=== PATIENT | male | born 1955 | race Hispanic/Latino ===

== ENCOUNTER 2020-08-14 09:00 | Inpatient (IN) | payer OTHER ==
[~2020-08-14] VITALS: Ht 180.3 cm; Wt 131.0 kg
[2020-08-15 11:24] LABS: BASOPHILS % (AUTO) 1.2 % (0.0-5.0); EOSINOPHILS % (AUTO) 4.5 % (0.0-8.0); HEMATOCRIT 44.7 % (42-54); MEAN CORPUSCULAR HEMOGLOBIN 32.2 pg (27.0-33.0); MEAN CORPUSCULAR HGB CONC 35.1 g/dL (32.0-36.0); MEAN CORPUSCULAR VOLUME 91.8 fL (79-99); MONOCYTES % (AUTO) 6.4 % (3.0-13.0); NEUTROPHILS % (AUTO) 59.4 % (40.0-77.0); PLATELET COUNT (AUTO) 347 K/uL (130-400); RED BLOOD CELL COUNT(AUTO) 4.87 MIL/uL (4.50-6.20); RED CELL DISTRIBUTION WIDTH 11.9 % (11.0-15.5); WHITE BLOOD COUNT (AUTO) 13.3 K/uL (4.8-10.8)
[2020-08-15 11:32] LABS: CREATININE 1.5 mg/dL (0.5-1.5); POTASSIUM 3.3 mmol/L (3.5-5.1)
[2020-08-15 11:36] LABS: APPEARANCE,URINE Clear (CLEAR); BILIRUBIN,URINE Negative (NEGATIVE); COLOR,URINE Dark Yellow (YELLOW); GLUCOSE, URINE (UA) 250 mg/dL (NEGATIVE); KETONES,URINE Negative (NEGATIVE); LEUKOCYTE ESTERASE ,URINE Small (NEGATIVE); NITRATE,URINE Negative (NEGATIVE); OCCULT BLOOD,URINE Negative (NEGATIVE); PROTEIN,URINE Negative (NEGATIVE)
[2020-08-15 11:42] LABS: BACTERIA,URINE Rare /HPF (None Seen); RBC,URINE 0-1 /HPF (0-1); SQUAMOUS EPITHELIAL CELL,UR Rare /HPF (0-2); WBC,URINE 0-1 /HPF (0-1)
[2020-08-15 11:54] LABS: INR 0.95 (0.85-1.15); PROTHROMBIN TIME 10.3 SEC (9.6-11.6)
[2020-08-20] MEDS ORDERED: TRAZ-187 PO (11:06)
[2020-08-20] MEDS ORDERED: CHLO50TA PO (11:06)
[2020-08-20] MEDS ORDERED: AEC81 PO (11:06)
[2020-08-20] MEDS ORDERED: LISI30TA4 PO (11:06)
[2020-08-20] MEDS ORDERED: FELO5TAB48 PO (11:06)
[2020-08-20] MEDS ORDERED: LACT10SO46 PO (11:06)
[2020-08-20] MEDS ORDERED: METF750T46 PO (11:06)
[2020-08-20] MEDS ORDERED: ALLO100T PO (11:06)
[2020-08-20] MEDS ORDERED: GLIM4TAB36 PO (11:06)
[2020-08-20] MEDS ORDERED: LOVA10TA2 PO (11:06)
--- NOTE | 2020-08-20 12:37 | NUR ---
RE: ABNORMAL LABS REPORTED ABNORMAL URINALYSIS RESULTS TO DR MEMBRENO, BMP RESULTS K 3.3, CBC RESULTS WBC 13.3) NO NEW ORDERS RECEIVED. PATIENT ASYMPTOMATIC.
[2020-08-21] VITALS (21 sets, daily range): BP systolic 91–134; BP diastolic 50–79
[2020-08-21] MEDS: CEFAZOLIN SODIUM 1 GM VIAL IVP SCH ×2 (06:00→11:45)
[2020-08-21] MEDS ORDERED: SODIUM CHLORIDE 0.9% 1000ML 1,000 ML IV ONE (08:11)
--- NOTE | 2020-08-21 08:32 | NUR ---
SX SCD APPLIED TO BLE
[2020-08-21] MEDS ORDERED: INSULIN HUMULIN R 100 UNIT/ML 3ML ONE (09:25)
[2020-08-21] MEDS ORDERED: CELECOXIB 200 MG CAP ONE (10:08)
[2020-08-21] MEDS ORDERED: ACETAMINOPHEN EXTRA STRENGTH 500 MG TABLET ONE (10:08)
[2020-08-21] MEDS ORDERED: METOCLOPRAMIDE 10 MG/2 ML VIAL ONE (10:08)
[2020-08-21] MEDS ORDERED: LIDOCAINE PF 2% 5ML ABBOJECT ONE (10:30)
[2020-08-21] MEDS ORDERED: ONDANSETRON HCL 4 MG/2 ML VIAL ONE (10:30)
[2020-08-21] MEDS ORDERED: SUCCINYLCHOLINE CHLORIDE 20 MG/ML 10 ML VIAL ONE (10:30)
[2020-08-21] MEDS ORDERED: DEXAMETHASONE SOD PHOSPHATE 10MG/ML 1ML VIAL ONE (10:30)
[2020-08-21] MEDS ORDERED: MIDAZOLAM HCL 1 MG/ML 2ML VIAL ONE (10:31)
[2020-08-21] MEDS ORDERED: PROPOFOL 10 MG/ML 20ML VIAL IV ONE (10:31)
[2020-08-21] MEDS ORDERED: NEOSTIGMINE 5MG/5ML SYR IV ONE (10:31)
[2020-08-21] MEDS ORDERED: FENTANYL CITRATE PF 50 MCG/1 ML 2ML VIAL ONE (10:31)
[2020-08-21] MEDS ORDERED: ROCURONIUM 10MG/1ML SYR 10 MG/ML ML ONE ×2 (10:31→13:39)
[2020-08-21] MEDS ORDERED: GLYCOPYRROLATE 1 MG/5 ML SYRINGE ONE (10:31)
[2020-08-21] MEDS ORDERED: TRANEXAMIC ACID 1000MG/10ML ONE ×2 (10:50→15:49)
[2020-08-21] MEDS ORDERED: ROPIVACAINE 0.5% 5MG/ML 30ML IJ ONE (11:17)
[2020-08-21] MEDS: INSULIN HUMULIN R 100 UNIT/ML 3ML SQ SCH ×5 (11:30→21:00)
[2020-08-21] MEDS ORDERED: CEFAZOLIN SODIUM 1 GM VIAL ONE (12:01)
[2020-08-21] MEDS ORDERED: EPHEDRINE SULFATE 50 MG/ML AMPULE ONE (12:37)
[2020-08-21] MEDS ORDERED: SODIUM BICARB 8.4% 50ML SYRINGE ONE (14:03)
[2020-08-21] MEDS ORDERED: OXYCODONE HCL 5 MG TAB PO PRN (14:45)
[2020-08-21] MEDS: ACETAMINOPHEN EXTRA STRENGTH 500 MG TABLET PO SCH ×2 (14:45→23:46)
[2020-08-21] MEDS ORDERED: POTASSIUM CHLORIDE 20 MEQ ERTAB PO PRN (14:45)
[2020-08-21] MEDS ORDERED: LIDOCAINE HCL-MPF 1% 2ML VIAL IV PRN (14:45)
[2020-08-21] MEDS ORDERED: FE FUMARATE/FA/MV, MIN COMB#15 1 TAB PO PRN (14:45)
[2020-08-21] MEDS ORDERED: ONDANSETRON HCL 4 MG/2 ML VIAL IVP PRN (14:45)
[2020-08-21] MEDS ORDERED: DiphenhydrAMINE HCL 50 MG/ML VIAL IVP PRN (14:45)
[2020-08-21] MEDS ORDERED: CALCIUM CARBONATE 500 MG TABLET PO PRN (14:45)
[2020-08-21] MEDS ORDERED: POTASSIUM CHLORIDE 20MEQ/100ML 100 ML IV PRN (14:45)
[2020-08-21] MEDS ORDERED: POTASSIUM CHLORIDE 10% ELIXIR 20 MEQ/15 ML UDCUP PO PRN (14:45)
[2020-08-21] MEDS: SODIUM CHLORIDE 0.9% 1000ML 1,000 ML IV SCH ×4 (15:16→21:03)
--- NOTE | 2020-08-21 16:30 | NUR ---
PT arrived via hospital bed from PACU s/p right reverse total shoulder. PT somewhat drowsy, but easily roused. Coherent conversation. Dressing to right shoulder clean, dry, intact. Hemovac in place, already activated. Moderate amount sanguinous drainage in collecting device. Connected pt to IV fluids and post op monitoring. Call light and bedside table in easy reach.
--- NOTE | 2020-08-21 16:45 | NUR ---
Pt's BPs since arrival to floor have been mid to low 90's. Manual pressure taken on left arm - results 98/70. Reported to Dr. Beth, rec'd orders to bolus 500 cc ns, then continue w/ IVF as previously ordered @ 100ml/hr, hold am BP meds if pressure continues to be low in am.
--- NOTE | 2020-08-21 17:45 | NUR ---
Completed bolus, repeat BP was 102/50, pt stated feels better.
[2020-08-21] MEDS ORDERED: LACTULOSE 20 GM/30 ML UDCUP PO PRN (18:30)
[2020-08-21] MEDS ORDERED: ASPIRIN 81 MG EC TAB PO SCH (18:30)
[2020-08-21] MEDS ORDERED: TRAZODONE HCL 100 MG TABLET PO PRN (18:30)
[2020-08-21] MEDS ORDERED: PHARMACY COMMUNICATION MISC SCH (18:45)
[2020-08-21] MEDS: PREGABALIN 25 MG CAP PO SCH (20:43)
[2020-08-21] MEDS: TRAMADOL HCL 50 MG TABLET PO PRN (20:45)
[2020-08-21] MEDS: FAMOTIDINE 20MG TAB 20 MG TAB PO SCH (20:45)
[2020-08-21] MEDS: CELECOXIB 200 MG CAP PO SCH (20:45)
[2020-08-21] MEDS: CEFAZOLIN 3GM /D5W 100ML 100 ML IV SCH ×2 (21:03→21:16)
[2020-08-22] VITALS (7 sets, daily range): BP systolic 99–116; BP diastolic 60–72
[2020-08-22 03:40] LABS: HEMATOCRIT 35.9 % (42-54); MEAN CORPUSCULAR HEMOGLOBIN 32.4 pg (27.0-33.0); MEAN CORPUSCULAR HGB CONC 34.5 g/dL (32.0-36.0); MEAN CORPUSCULAR VOLUME 93.7 fL (79-99); RED BLOOD CELL COUNT(AUTO) 3.83 MIL/uL (4.50-6.20); RED CELL DISTRIBUTION WIDTH 12.3 % (11.0-15.5); WHITE BLOOD COUNT (AUTO) 15.7 K/uL (4.8-10.8)
[2020-08-22 04:05] LABS: CREATININE 1.5 mg/dL (0.5-1.5); POTASSIUM 3.2 mmol/L (3.5-5.1)
[2020-08-22] MEDS: CEFAZOLIN 3GM /D5W 100ML 100 ML IV SCH (05:05)
[2020-08-22] MEDS: INSULIN HUMULIN R 100 UNIT/ML 3ML SQ SCH ×8 (05:45→20:37)
[2020-08-22] MEDS: ACETAMINOPHEN EXTRA STRENGTH 500 MG TABLET PO SCH ×3 (06:31→22:13)
[2020-08-22] MEDS: CELECOXIB 200 MG CAP PO SCH ×2 (08:21→20:01)
[2020-08-22] MEDS: LISINOPRIL 10 MG TABLET PO SCH (08:21)
[2020-08-22] MEDS: PREGABALIN 25 MG CAP PO SCH ×2 (08:21→20:01)
[2020-08-22] MEDS: AMLODIPINE BESYLATE 5 MG TAB PO SCH (08:21)
[2020-08-22] MEDS: Chlorthalidone 50 MG PO SCH (08:22)
[2020-08-22] MEDS: ENOXAPARIN SODIUM 40 MG/0.4 ML SYRINGE SQ SCH (08:24)
[2020-08-22] MEDS: POLYETHYLENE GLYCOL 3350 17 GM POWD.PACK PO SCH (08:27)
[2020-08-22] MEDS ORDERED: CHLORTHALIDONE 50 MG PO SCH (09:00)
[2020-08-22] MEDS: SODIUM CHLORIDE 0.9% 1000ML 1,000 ML IV SCH (10:45)
[2020-08-22] MEDS: GLIMEPIRIDE 2 MG TABLET PO SCH (12:04)
[2020-08-22] MEDS: ATORVASTATIN CALCIUM 10 MG TABLET PO SCH (12:05)
[2020-08-22] MEDS: OXYCODONE HCL 5 MG TAB PO PRN ×2 (13:34→20:02)
[2020-08-22] MEDS ORDERED: METFORMIN HCL 500 MG TAB.SR.24H PO SCH (14:00)
--- NOTE | 2020-08-22 14:56 | NUR ---
CM NOTE/IA/ [facility] DCP MET WITH PATIENT AT BEDSIDE. PER PATIENT, LIVES WITH GIRLFRIEND, IS INDEPENDENT WITH ADLS, HAS PROVIDER 4 1/2 HR PER DAY (GIRLFRIEND IS PROVIDER), HAS STANDARD WALKER AND 2 CANES, AND FEELS SAFE TO RETURN HOME. PATIENT MADE AWARE OF REFERRAL FOR HOME HEALTH. MADELINE COMPLETED FOR [facility]. THIS CM TO SEND REFERRAL. Addendum: 08/22/20 at 1501 by ZAHRA COLLAZO RN CM Amended: Links added.
--- NOTE | 2020-08-22 15:02 | NUR ---
CM NOTE/[facility] CLINICAL REFERRAL FAXED TO [facility], CHELSEA AT [facility] GIVEN A HEADS UP ABOUT REFERRAL AND POSSIBLE DISCHARGE TODAY. CM TO FOLLOW UP FOR APPROVAL. PRIMARY NURSE, MAGGIE TORRE, MADE AWARE.
[2020-08-22] MEDS: FAMOTIDINE 20MG TAB 20 MG TAB PO SCH (20:01)
[2020-08-22] MEDS ORDERED: HYDROMORPHONE HCL 2 MG/ML VIAL ONE (21:48)
[2020-08-22] MEDS: HYDROMORPHONE 1 MG/1 ML AMP IVP PRN (23:08)
[2020-08-23] MEDS: OXYCODONE HCL 5 MG TAB PO PRN ×2 (00:13→03:54)
[2020-08-23] MEDS: HYDROMORPHONE 1 MG/1 ML AMP IVP PRN ×5 (00:56→05:31)
[2020-08-23 03:59] VITALS: BP 103/59
[2020-08-23] MEDS: INSULIN HUMULIN R 100 UNIT/ML 3ML SQ SCH ×5 (05:27→12:35)
[2020-08-23] MEDS: ACETAMINOPHEN EXTRA STRENGTH 500 MG TABLET PO SCH (06:23)
[2020-08-23 08:00] VITALS: BP 113/79
[2020-08-23] MEDS: TRAMADOL HCL 50 MG TABLET PO PRN (08:09)
[2020-08-23] MEDS: CELECOXIB 200 MG CAP PO SCH (08:09)
[2020-08-23] MEDS: POLYETHYLENE GLYCOL 3350 17 GM POWD.PACK PO SCH (08:10)
[2020-08-23] MEDS: LISINOPRIL 10 MG TABLET PO SCH (08:10)
[2020-08-23] MEDS: ENOXAPARIN SODIUM 40 MG/0.4 ML SYRINGE SQ SCH (08:10)
[2020-08-23] MEDS: PREGABALIN 25 MG CAP PO SCH (08:10)
[2020-08-23] MEDS: AMLODIPINE BESYLATE 5 MG TAB PO SCH (08:10)
[2020-08-23] MEDS: Chlorthalidone 50 MG PO SCH (08:11)
[2020-08-23 11:00] VITALS: BP 108/74
[2020-08-23] MEDS: ATORVASTATIN CALCIUM 10 MG TABLET PO SCH (12:31)
[2020-08-23] MEDS: GLIMEPIRIDE 2 MG TABLET PO SCH (12:31)
--- NOTE | 2020-08-23 12:48 | NUR ---
DC PLAN SPOKE TO CHELSEA FROM [facility] PATIENT IS ACCEPTED LET NURSE KNOW. Addendum: 08/23/20 at 1249 by JIM BOOTH RN CM Amended: Links added.
[2020-08-23] MEDS ORDERED: HYDR-4457 PO (13:22)
--- NOTE | 2020-08-23 17:15 | NUR ---
DISCHARGE PATIENT GIVEN DISCHARGE INSTRUCTIONS ON FOLLOW UP APPOINTMENT, NEW PRESCRIBED RX([facility]CO), PT, INCISION CARE, PATIENT VERBALIZED UNDERSTANDING OF ALL EDUCATION GIVEN VIA TEACH BACK. IV DISCONTINUED CATHETER INTACT. NO DISTRESS NOTED UPON DISCHARGE. ALL BELONGINGS TAKEN WITH. FAROOQ ALARCON LVN AT [facility] GIVEN REPORT REGARDING FOLLOW UP APPOINTMENT, NEW PRESCRIBED RX(NORCO), PT, INCISION CARE. ALL QUESTIONS ANSWERED ACCORDINGLY.,
[2020-08-24] MEDS ORDERED: BISACODYL 10 MG SUPP.RECT RC PRN (14:45)
[2020-08-28] MEDS ORDERED: ALLOPURINOL 100 MG TABLET PO SCH (09:00)
== END 2020-08-23 17:35 | disposition home health service (06) | DRG 483 ==
LOC: DAHIP 08-21 07:17 → EDSTATUS 08-21 09:00 → 3BH 08-21 16:00
PROVIDERS: ADMIT Orthopaedic Surgery; ATTEND Orthopaedic Surgery
PROC: 0RRJ00Z Replacement of Right Shoulder Joint with Reverse Ball and Socket Synthetic Substitute, Open Approach (ICD-10-PCS; principal; 2020-08-21 11:15)
DX: M75.101 Unspecified rotator cuff tear or rupture of right shoulder, not specified as traumatic (principal); D62 Acute posthemorrhagic anemia; Z68.41 Body mass index [BMI] 40.0-44.9, adult; M12.811 Other specific arthropathies, not elsewhere classified, right shoulder; E11.9 Type 2 diabetes mellitus without complications; E78.00 Pure hypercholesterolemia, unspecified; E87.6 Hypokalemia; I10 Essential (primary) hypertension; Z96.649 Presence of unspecified artificial hip joint; Z96.653 Presence of artificial knee joint, bilateral; G89.29 Other chronic pain; M10.9 Gout, unspecified; E66.01 Morbid (severe) obesity due to excess calories; M06.9 Rheumatoid arthritis, unspecified; Z20.828 Contact with and (suspected) exposure to other viral communicable diseases
CPT/HCPCS: 36415; 73030; 80048; 81001; 82948; 85025; 85027; 85610; 87641; 97039; A4565; G0378; J0330; J0690; J1100; J1170; J1650; J1815; J2001; J2250; J2405; J2704; J2710; J2765; J2795; J3010; J3490; J7030; U0003

== ENCOUNTER → 2021-02-06 | Outpatient (CLI) | payer OTHER ==
[~2021-02-06] MED LIST: AEC81 PO; ALLO100T PO; CHLO50TA PO; FELO5TAB48 PO; GLIM4TAB36 PO; HYDR-4457 PO; LACT10SO46 PO; LISI30TA4 PO; LOVA10TA2 PO; METF750T46 PO; TRAZ-187 PO
== END | disposition home or self-care (01) ==
LOC: RAH 01-09 07:36
PROVIDERS: ATTEND Orthopaedic Surgery
DX: M50.321 Other cervical disc degeneration at C4-C5 level (principal); M48.02 Spinal stenosis, cervical region; M40.40 Postural lordosis, site unspecified; M25.78 Osteophyte, vertebrae; G37.8 Other specified demyelinating diseases of central nervous system
CPT/HCPCS: 72141

== ENCOUNTER → 2023-05-10 | Outpatient (CLI) | payer OTHER | END | disposition home or self-care (01) | LOC: RAH 13:37 | PROVIDERS: ATTEND Student in an Organized Health Care Education/Training Program | DX: Z01.818 Encounter for other preprocedural examination (principal); M19.071 Primary osteoarthritis, right ankle and foot; M77.31 Calcaneal spur, right foot | CPT/HCPCS: 73700 ==

== ENCOUNTER 2024-01-18 18:39 | Observation (INO) | payer OTHER, MEDICARE ==
[~2024-01-18] VITALS: Ht 180.3 cm; Wt 117.9 kg
[2024-01-18 19:40] LABS: BASOPHILS # (AUTO) 0.16 K/uL (0.00-0.20); BASOPHILS % (AUTO) 0.7 % (0.0-5.0); EOSINOPHILS # (AUTO) 0.21 K/uL (0.00-0.70); EOSINOPHILS % (AUTO) 0.9 % (0.0-8.0); IMMATURE GRANULOCYTE ABSOLUTE 0.11 K/uL (0-1); LYMPHOCYTES # (AUTO) 3.5 K/uL (1.0-4.8); LYMPHOCYTES % (AUTO) 14.8 % (21.0-51.0); MEAN CORPUSCULAR HEMOGLOBIN 30.9 pg (27.0-33.0); MEAN CORPUSCULAR HGB CONC 34.8 g/dL (32.0-36.0); MEAN CORPUSCULAR VOLUME 88.9 fL (79-99); MONOCYTES # (AUTO) 1.4 K/uL (0.1-1.0); MONOCYTES % (AUTO) 5.8 % (3.0-13.0); NEUTROPHILS % (AUTO) 77.3 % (40.0-77.0); PLATELET COUNT (AUTO) 601 K/uL (130-400); RED CELL DISTRIBUTION WIDTH 12.1 % (11.0-15.5); WHITE BLOOD COUNT (AUTO) 23.3 K/uL (4.8-10.8)
[2024-01-18 19:57] LABS: CREATININE 1.4 mg/dL (0.5-1.3); POTASSIUM 3.5 mmol/L (3.5-5.1)
[2024-01-18 19:59] LABS: ALBUMIN 3.3 g/dL (3.5-5.0); BILIRUBIN,TOTAL 0.6 mg/dL (0.2-1.0); TOTAL PROTEIN, SERUM 7.6 g/dL (6.0-8.3)
[2024-01-18] MEDS: LACTULOSE 20 GM/30 ML UDCUP PO ONE (20:31)
[2024-01-18] MEDS: MAGNESIUM CITRATE 296 ML SOLUTION PO ONE (20:31)
[2024-01-18 20:44] LABS: APPEARANCE,URINE CLEAR (CLEAR); BILIRUBIN,URINE NEGATIVE (NEGATIVE); COLOR,URINE YELLOW (YELLOW); GLUCOSE, URINE (UA) NEGATIVE (NEGATIVE); KETONES,URINE NEGATIVE (NEGATIVE); LEUKOCYTE ESTERASE ,URINE NEGATIVE Leu/uL (NEGATIVE); NITRATE,URINE NEGATIVE (NEGATIVE); OCCULT BLOOD,URINE NEGATIVE (NEGATIVE); PROTEIN,URINE 20 mg/dL (NEGATIVE); UROBILINOGEN,URINE 3 mg/dL (0.2-1.0)
[2024-01-18 20:45] LABS: ADD UA MICROSCOPIC YES
[2024-01-18 21:10] LABS: RBC,URINE None Seen /HPF (0-1)
[2024-01-18 21:11] LABS: BACTERIA,URINE None Seen /HPF (None Seen); SQUAMOUS EPITHELIAL CELL,UR None Seen /HPF (0-2); WBC,URINE 0-1 /HPF (0-1)
[2024-01-18] MEDS ORDERED: IOHEXOL 350 MG/ML 100ML INFUS..BTL IV ONE (21:58)
[2024-01-19] MEDS: CEFTRIAXONE 1G VIAL IVPB ONE (00:06)
[2024-01-19] MEDS: METRONIDAZOLE 500MG/100ML BAG IV SCH (00:07)
[2024-01-19] MEDS ORDERED: ALBUTEROL 0.083% 2.5 MG/3 ML INH IH PRN (00:30)
[2024-01-19] MEDS ORDERED: ACETAMINOPHEN 325 MG TAB PO PRN (00:30)
[2024-01-19] MEDS ORDERED: LACTULOSE 20 GM/30 ML UDCUP PO PRN ×2 (00:30→09:30)
[2024-01-19] MEDS ORDERED: HYDRALAZINE 20MG/ML VIAL IV PRN (00:30)
[2024-01-19] MEDS ORDERED: DOCUSATE SODIUM 100 MG CAP PO PRN (00:30)
[2024-01-19] MEDS ORDERED: ACETAMINOPHEN 650 MG SUPPOSITORY RC PRN (00:30)
[2024-01-19] MEDS ORDERED: ONDANSETRON 4MG INJ IVP PRN (00:30)
[2024-01-19] MEDS ORDERED: TEMAZEPAM 15 MG CAPSULE PO PRN (00:30)
[2024-01-19] MEDS ORDERED: IPRATROPIUM 0.5 MG/2.5 ML INH IH PRN (00:30)
[2024-01-19 01:50] LABS: SARS-CoV-2, RNA, NAAT NEGATIVE SARS CoV-2 (NEGATIVE)
[2024-01-19 01:56] LABS: INFLUENZA TYPE A NEGATIVE FOR TYPE A (NEG); INFLUENZA TYPE B NEGATIVE FOR TYPE B (NEG)
[2024-01-19 01:57] LABS: RAPID GROUP A STREP positive (NEGATIVE)
[2024-01-19] MEDS: ZOSYN 3.375GM +NS 50ML IVPB SCH (01:58)
[2024-01-19] MEDS: LACTATED RINGERS 1000ML 1,000 ML IV SCH (01:59)
[2024-01-19] MEDS ORDERED: 0.9%NACL 50ML IV SCH (02:00)
[2024-01-19] MEDS ORDERED: MAGNESIUM 2GM PREMIX 50ML 50 ML IV PRN (03:00)
[2024-01-19] MEDS ORDERED: KCL 20 MEQ ERTAB PO PRN (03:00)
[2024-01-19] MEDS ORDERED: POTASSIUM CHLORIDE 10MEQ/100ML 100 ML IV PRN (03:00)
[2024-01-19] MEDS ORDERED: POTASSIUM CHLORIDE 10% ELIXIR 20 MEQ/15 ML UDCUP PO PRN (03:00)
[2024-01-19 07:42] VITALS: PULSE 81; RESP 18; O2SAT 95
[2024-01-19] MEDS: INSULIN HUMULIN R 100 UNIT/ML 3ML SQ SCH (08:12)
[2024-01-19] MEDS: PANTOPRAZOLE 40 MG/VIAL IVP SCH (08:29)
[2024-01-19] MEDS: ENOXAPARIN SODIUM 40 MG/0.4 ML SYRINGE SQ SCH (08:30)
[2024-01-19] MEDS: POLYETHYLENE GLYCOL 3350 17 GM POWD.PACK PO SCH (09:30)
[2024-01-19] MEDS: DOCUSATE SODIUM 100 MG CAP PO ONE (09:52)
[2024-01-19] MEDS: BISACODYL 10 MG SUPP.RECT RC ONE (09:52)
[2024-01-19 15:18] LABS: HEMATOCRIT 37.7 % (42-54); MEAN CORPUSCULAR HEMOGLOBIN 31.2 pg (27.0-33.0); MEAN CORPUSCULAR HGB CONC 34.2 g/dL (32.0-36.0); MEAN CORPUSCULAR VOLUME 91.3 fL (79-99); RED BLOOD CELL COUNT(AUTO) 4.13 MIL/uL (4.50-6.20); RED CELL DISTRIBUTION WIDTH 12.1 % (11.0-15.5); WHITE BLOOD COUNT (AUTO) 18.3 K/uL (4.8-10.8)
[2024-01-19 15:27] LABS: CREATININE 1.2 mg/dL (0.5-1.3); POTASSIUM 3.4 mmol/L (3.5-5.1)
[2024-01-19 18:41] VITALS: BP 133/78; PULSE 78; RESP 18; O2SAT 96
== END 2024-01-19 19:19 | disposition home or self-care (01) ==
LOC: EDH 18:39 → EDHIP 18:40
PROVIDERS: ADMIT Internal Medicine Critical Care Medicine; ATTEND Internal Medicine Critical Care Medicine
DX: A41.9 Sepsis, unspecified organism (principal); Z20.822 Contact with and (suspected) exposure to COVID-19; K59.03 Drug induced constipation; E87.20 Acidosis, unspecified; M79.661 Pain in right lower leg; I12.9 Hypertensive chronic kidney disease with stage 1 through stage 4 chronic kidney disease, or unspecified chronic kidney disease; E11.22 Type 2 diabetes mellitus with diabetic chronic kidney disease; N18.30 Chronic kidney disease, stage 3 unspecified; N17.9 Acute kidney failure, unspecified; E78.5 Hyperlipidemia, unspecified; E11.65 Type 2 diabetes mellitus with hyperglycemia; K52.9 Noninfective gastroenteritis and colitis, unspecified; D72.829 Elevated white blood cell count, unspecified; D64.9 Anemia, unspecified; D75.839 Thrombocytosis, unspecified; E86.0 Dehydration; N28.1 Cyst of kidney, acquired; J02.0 Streptococcal pharyngitis; M16.11 Unilateral primary osteoarthritis, right hip; Z79.82 Long term (current) use of aspirin; Z79.899 Other long term (current) drug therapy; Z79.84 Long term (current) use of oral hypoglycemic drugs
CPT/HCPCS: 80053; 85025; 81001; 36415; 74018; 74177; 99291; 96372; 96361; 96365; 96366; 96375; 96367; 96368; 80048; 85027; 87040 ×2; 87880; 87804 ×2; 82948 ×3; 83605 ×2; 87635; 84145; G0378 ×19; Q9967; J1815; J7120 ×2; J0696; J2543 ×3; C9113; J1650; J3490